=== PATIENT | female | born 1935 | race Two or more races ===

== ENCOUNTER 2017-10-08 09:30 | Outpatient (CLI) | payer OTHER | END 2017-10-08 09:37 | disposition home or self-care (01) | LOC: SONOGRAMA 09:30 → MAMO-SONO 09:45 | DX: E04.1 Nontoxic single thyroid nodule (principal) ==

== ENCOUNTER 2017-12-08 09:00 | Outpatient (CLI) | payer OTHER | END 2017-12-08 09:04 | disposition home or self-care (01) | LOC: SONOGRAMA 09:00 | DX: E04.2 Nontoxic multinodular goiter (principal) ==

== ENCOUNTER 2018-01-11 08:12 | Outpatient (CLI) | payer OTHER ==
[~2018-01-11] VITALS: Ht 167.6 cm; Wt 68.0 kg
== END 2018-01-11 08:30 | disposition home or self-care (01) ==
LOC: OFIC 805 08:12
DX: R22.1 Localized swelling, mass and lump, neck (principal); E04.2 Nontoxic multinodular goiter; H91.13 Presbycusis, bilateral; J31.0 Chronic rhinitis

== ENCOUNTER 2018-09-20 07:18 | Outpatient (CLI) | payer OTHER ==
[~2018-09-20] VITALS: Ht 152.4 cm; Wt 70.3 kg
[2018-09-20] MEDS ORDERED: ORPHENADRINE C100 MG PO (11:15)
[2018-09-20] MEDS ORDERED: DICLOFENAC SODI50 MG PO ×2 (11:15→12:46)
[2018-09-20] MEDS ORDERED: ZANAFLEX2 MG PO (12:45)
== END 2018-09-20 07:40 | disposition home or self-care (01) ==
LOC: OFIC 805 07:18
DX: E04.2 Nontoxic multinodular goiter (principal); H91.13 Presbycusis, bilateral; J31.0 Chronic rhinitis

== ENCOUNTER 2018-09-20 09:03 | Emergency (ER) | payer OTHER ==
[~2018-09-20] VITALS: Ht 160 cm; Wt 63.5 kg
[2018-09-20] MEDS ORDERED: DICLOFENAC SODI50 MG PO ×2 (11:15→12:46)
[2018-09-20] MEDS ORDERED: ORPHENADRINE C100 MG PO (11:15)
[2018-09-20] MEDS ORDERED: ZANAFLEX2 MG PO (12:45)
== END 2018-09-20 11:24 | disposition home or self-care (01) ==
LOC: ER 09:03
DX: M25.512 Pain in left shoulder (principal); M79.622 Pain in left upper arm

== ENCOUNTER 2018-10-10 09:44 | Outpatient (CLI) | payer OTHER ==
[~2018-10-10 09:44] MED LIST: DICLOFENAC SODI50 MG PO; ORPHENADRINE C100 MG PO; ZANAFLEX2 MG PO
== END 2018-10-10 09:47 | disposition home or self-care (01) ==
LOC: SONOGRAMA 09:44
DX: E04.2 Nontoxic multinodular goiter (principal)

== ENCOUNTER 2018-11-02 09:00 | Outpatient (CLI) | payer OTHER | END 2018-11-02 11:18 | disposition home or self-care (01) | LOC: SONOGRAMA 09:00 | DX: E04.2 Nontoxic multinodular goiter (principal) ==

== ENCOUNTER 2018-11-17 10:08 | Outpatient (CLI) | payer OTHER | END 2018-11-17 10:11 | disposition home or self-care (01) | LOC: SONOGRAMA 10:08 → MAMO-SONO 11:15 | DX: M75.32 Calcific tendinitis of left shoulder (principal) ==

== ENCOUNTER 2018-12-04 10:03 | Outpatient (CLI) | payer OTHER | END 2018-12-04 10:05 | disposition home or self-care (01) | LOC: RAD 10:03 | DX: R07.89 Other chest pain (principal) ==

== ENCOUNTER 2018-12-25 07:54 | Emergency (ER) | payer OTHER ==
[~2018-12-25] VITALS: Ht 165.1 cm; Wt 59.0 kg
[2018-12-25] MEDS ORDERED: ZITHROMAX500 MG PO (10:56)
== END 2018-12-25 11:18 | disposition home or self-care (01) ==
LOC: ER 07:54
DX: B33.8 Other specified viral diseases (principal); B96.0 Mycoplasma pneumoniae [M. pneumoniae] as the cause of diseases classified elsewhere; R42 Dizziness and giddiness; R63.0 Anorexia; R11.0 Nausea

== ENCOUNTER 2020-01-08 09:16 | Emergency (ER) | payer OTHER ==
[~2020-01-08] VITALS: Ht 160 cm; Wt 54.4 kg
[~2020-01-08 09:16] MED LIST changes: +ZITHROMAX500 MG PO
== END 2020-01-08 13:20 | disposition home or self-care (01) ==
LOC: ER 09:16
DX: R63.0 Anorexia (principal); B34.9 Viral infection, unspecified; Z20.818 Contact with and (suspected) exposure to other bacterial communicable diseases

== ENCOUNTER 2020-04-23 13:47 | Emergency (ER) | payer OTHER ==
[~2020-04-23] VITALS: Ht 160 cm; Wt 47.6 kg
[2020-04-23] MEDS ORDERED: PEPCID AC20 MG PO (20:53)
[2020-04-23] MEDS ORDERED: CARAFATE1 GM PO (20:53)
== END 2020-04-23 21:07 | disposition home or self-care (01) ==
LOC: ER 13:47
DX: K52.89 Other specified noninfective gastroenteritis and colitis (principal); E86.0 Dehydration; R10.33 Periumbilical pain; Z03.818 Encounter for observation for suspected exposure to other biological agents ruled out

== ENCOUNTER 2021-10-28 14:12 | Inpatient (IN) | payer OTHER ==
[~2021-10-28] VITALS: Ht 165.1 cm; Wt 47.6 kg
[~2021-10-28 14:12] MED LIST changes: +CARAFATE1 GM PO; +PEPCID AC20 MG PO
[2021-10-28] MEDS ORDERED: METOPROLOL SUCC25 MG PO (14:24)
[2021-10-28] MEDS ORDERED: QUETIAPINE FUMA50 MG PO (14:24)
[2021-10-28] MEDS ORDERED: ST. JOSEPH ASPI81 M2 PO (14:24)
[2021-10-28] MEDS ORDERED: PANTOPRAZOLE SO40 MG PO (14:24)
[2021-10-28] MEDS ORDERED: LEVOTHYROXINE50 MCG PO (14:24)
[2021-10-28] MEDS ORDERED: DONEPEZIL HCL10 MG PO (14:24)
--- NOTE | 2021-10-28 14:25 | NUR ---
SE RECIBE PACIENTE ALERTA, ORIENTADAX 3 ESFERAS LLEGA EN AMBULANCIA ACOMPANADA DE HIJO REFIEREN TRAER POR DEBILIDAD , 2 EPISODIOS DE VOMITOS, Y DOLOR ABDOMINAL. SE ESTIMAN S/V SE UBICA EN AREA DE OBSERVACION.
--- NOTE | 2021-10-28 17:17 | NUR ---
EVALUA PTE. SE EDUCA A FAMILIAR SOBRE TX MEDICO LA CUAL REFIERE COMPRENDER. SE COLECTAN MUESTRAS DE LABORATORIO BAJO MEDIDAS ASEPTICAS. SE ADMINISTRAN MEDICAMENTOS CIRILO ORDEN MEDICA. SE COORDINA BEBETO X. PTE MANEJADA POR .
--- NOTE | 2021-10-28 19:35 | NUR ---
SE GLENROY TUBOS PILOTOS PARA 2 UNIDADES FRACC PENDIENTES A TRANSFUNDIR,SE NOTIFICAN A MS MEL DE BANCO DE YT AUXILIO MUTUO,SE ENTREGAN EN LAB A MS JILLIAN.FAMILIAR FIRMA PERMISO DE TRANSFUSION.SE CANALIZA BAJO MEDIDAS ASEPTICAS EN MANO RT.
--- NOTE | 2021-10-29 05:14 | NUR ---
SE RECIBE PTE ALERTA ORIENTADA X 3, SE RECIBE PTE EN [place] CON BARANDAS ELEVADAS POR GEORGE SEGURIDAD,SE OBSERVA AMADOU INTACTO.VENOPUNCION EN BRAZO DERECHO PATETENTE PENELOPE DE EDEMA Y ERITEMA RECIBIENDO 0.9 NSS A 90 ML/HR.NO SE OBSERVA EDEMA EN EXTREMIDADES SUPERIORES E INFERIORRES. 00:00 SE OBSERVA SECRECIONES COFFE BROWN DRENANDO 200ML, SE CONECTA A SX INTERMITENTE. 03:00 SE UBICA PACIENTE EN [place] #13 CON MONITOR CARDIACO,HR-91 SINUSAL,R-19,B/P-127/58,TEMP-96.5,SAT-99%. 03:50 SE BUSCA PRIMERA UNIDAD DE LA PRIMERA FRACCION DE TY EN LABORATORIO. 04:00 SE COMIENZA TRANSFUCCION SE TY, SE GLENROY S/V LUEGO DE LOS 15 MIN POR 45MIN Y SE DOCUMENTAN EN SISTEMA. 05:00 SE COLOCA COOPER #16 A GRAVEDAD USANDO MEDIDAS ASEPTICAS, CON UN EGRESO DE 100ML A L MOMENTO.
--- NOTE | 2021-10-29 07:18 | NUR ---
SE RECIBE PTE FEMENINA DE86 YRS ALERTA CONCIENTE Y TRANQUILA EN COMPANIA DE FAMILAIR. PTE SE MANTIENE CONSULTADA CON EL DR.LUIS OMALLEY PTE SE MANTIENE CON MONITOR CARDIACO Y BAJANDO A 150ML HRS DRIP DE PROTONIX 80/100 BAJANDO A 10ML HRS , .9NSS A 80 ML HRD Y LA PRIMERA UNIDAD DE PRBS FRACCIONADA . PTE SE MANTIENE AL MOMENTO PENELOPE DE DOLOR Y SE OBSERVA POR CAMBIOS.
--- NOTE | 2021-10-29 08:30 | NUR ---
SE LE TERMINA 1ERA UNIDAD DE PRBS FRACCIONADA A LA PTE , LA CUAL TOLERA. SE LE STEPHANIE S/V Y SE DOCUEMTA . SE MANTIENE BAJO OBSERVACION.
[2021-11-03] MEDS ORDERED: METOPROLOL SUCC25 MG PO (08:35)
[2021-11-03] MEDS ORDERED: QUETIAPINE FUMA50 MG PO (08:36)
[2021-11-03] MEDS ORDERED: PANTOPRAZOLE SO40 MG PO (08:37)
[2021-11-03] MEDS ORDERED: CARAFATE1 GM PO (08:37)
[2021-11-03] MEDS ORDERED: LEVOTHYROXINE50 MCG PO (08:38)
[2021-11-03] MEDS ORDERED: GABAPENTIN100 M2 PO (08:40)
== END 2021-11-03 15:42 | disposition home or self-care (01) | DRG 374 ==
LOC: ER 14:12 → MEDI 10-29 09:48 → SEC-K 10-29 09:48 → MEDI 10-29 11:21
PROVIDERS: ADMIT Internal Medicine; ATTEND Internal Medicine
PROC: BW21Y0Z Computerized Tomography (CT Scan) of Abdomen and Pelvis using Other Contrast, Unenhanced and Enhanced (ICD-10-PCS; 2021-10-28)
PROC: 30233N1 Transfusion of Nonautologous Red Blood Cells into Peripheral Vein, Percutaneous Approach (ICD-10-PCS; 2021-10-29)
PROC: 4A12X4Z Monitoring of Cardiac Electrical Activity, External Approach (ICD-10-PCS; 2021-10-29)
PROC: 0DB68ZX Excision of Stomach, Via Natural or Artificial Opening Endoscopic, Diagnostic (ICD-10-PCS; principal; 2021-10-30)
PROC: 02HV33Z Insertion of Infusion Device into Superior Vena Cava, Percutaneous Approach (ICD-10-PCS; 2021-10-30)
DX: C16.2 Malignant neoplasm of body of stomach (principal); K29.51 Unspecified chronic gastritis with bleeding; D50.0 Iron deficiency anemia secondary to blood loss (chronic); K31.89 Other diseases of stomach and duodenum; E03.9 Hypothyroidism, unspecified; G30.8 Other Alzheimer's disease; F02.80 Dementia in other diseases classified elsewhere, unspecified severity, without behavioral disturbance, psychotic disturbance, mood disturbance, and anxiety; Z20.822 Contact with and (suspected) exposure to COVID-19